=== PATIENT | male | born 1985 | race Two or more races ===

== ENCOUNTER 2020-01-02 10:38 | Emergency (ER) | payer OTHER ==
[~2020-01-02] VITALS: Ht 177.8 cm; Wt 97.5 kg
[2020-01-02] MEDS ORDERED: ULTRAM50 MG PO (12:04)
== END 2020-01-02 14:49 | disposition home or self-care (01) ==
LOC: ER 10:38
DX: S13.4XXA Sprain of ligaments of cervical spine, initial encounter (principal); X50.0XXA Overexertion from strenuous movement or load, initial encounter; Y93.89 Activity, other specified; Y92.69 Other specified industrial and construction area as the place of occurrence of the external cause; Y99.8 Other external cause status

== ENCOUNTER 2023-02-14 08:43 | Emergency (ER) | payer OTHER ==
[~2023-02-14] VITALS: Ht 177.8 cm; Wt 127.0 kg
[~2023-02-14 08:43] MED LIST: ULTRAM50 MG PO
[2023-02-14] MEDS ORDERED: NIFEDIPINE20 MG PO (09:00)
[2023-02-14] MEDS ORDERED: KETO10TA2 PO (12:27)
== END 2023-02-14 12:31 | disposition home or self-care (01) ==
LOC: ER 08:43
DX: S60.042A Contusion of left ring finger without damage to nail, initial encounter (principal); X58.XXXA Exposure to other specified factors, initial encounter; Y93.89 Activity, other specified; Y92.89 Other specified places as the place of occurrence of the external cause; Y99.9 Unspecified external cause status